=== PATIENT | female | born 1970 | race Caucasian/White ===

== ENCOUNTER 2018-07-09 10:55 | Day surgery (SDC) | payer BC ==
[2018-07-08 14:46] VITALS: BMI 28.3
[2018-07-09] MEDS ORDERED: Thrombin 5000 UNITS/5 ML VIAL ONE (11:44)
[2018-07-09] MEDS ORDERED: Bacitracin Zinc Ointment 30 gm TUBE ONE (11:44)
[2018-07-09] MEDS ORDERED: Sodium Chloride 0.9% 10 ML ONE (11:44)
[2018-07-09 11:48] LABS: #Basophils 0.1 thou/uL (0.0-0.2); #Eosinphils 0.3 thou/uL (0.0-0.7); #Lymphocytes 2.4 thou/uL (1.20-3.40); #Monocytes 0.5 thou/uL (0.11-0.59); #Neutrophils 4.1 thou/uL (1.40-6.50); %Basophils 0.9 % (0.0-1.0); %Lymphocytes 32.4 % (21.0-51.0); %Monocytes 6.5 % (0.0-10.0); %Neutrophils 56.2 % (42.0-75.0); Hemoglobin 13.9 g/dL (12.0-16.0); Mean Corpuscular HGB CONC 35.1 g/dL (32.0-36.0); Mean Corpuscular Hemoglobin 34.6 pg (27.0-31.0); Mean Corpuscular Volume 98.5 fL (78.0-98.0); Mean Platelet Volume 7.1 fL (7.4-10.4); Platelet Count 273 thou/uL (130-400); RBC Distribution Width 10.8 % (11.5-14.5); Red Blood Cell (RBC) Count 4.03 mill/uL (4.20-5.40); White Blood Cell (WBC) Count 7.3 thou/uL (4.8-10.8)
[2018-07-09] MEDS ORDERED: Fentanyl 250 MCG/5 ML VIAL ONE (11:53)
[2018-07-09 11:58] LABS: Anion Gap 12 mmol/L (10-20); BUN (Urea Nitrogen) 10 mg/dL (7.0-18.7); Calc. Creatinine Clearance 94 mL/min (70-130); Calcium 9.2 mg/dL (7.8-10.44); Carbon Dioxide 24 mmol/L (22-29); Estimated GFR-MDRD 85; Glucose 95 mg/dL (70-105); Potassium 4.1 mmol/L (3.5-5.1)
[2018-07-09 12:04] LABS: INR-International Normal Ratio 0.9; PTT 25.6 SEC (22.9-36.1); Prothrombin Time 12.5 SEC (12.0-14.7)
[2018-07-09 12:07] LABS: Chloride 103 mmol/L (98-107); Sodium 135 mmol/L (136-145)
[2018-07-09] MEDS ORDERED: CEFAZOLIN/Water 2 GM/20 ML SYRINGE ONE (12:27)
[2018-07-09] MEDS ORDERED: Milk Of Magnesia 30 ML UDCUP PO PRN (14:42)
[2018-07-09] MEDS ORDERED: Fleet Enema 133 ML BOT PR PRN (14:42)
[2018-07-09] MEDS ORDERED: HYDROcodone/Acetaminophen 7.5/325 mg Tablet PO PRN (14:42)
[2018-07-09] MEDS ORDERED: traMADol HCl 50 MG TAB PO PRN (14:42)
[2018-07-09] MEDS ORDERED: Mag-Al 1200 mg/1200 mg/30 ML UDCUP PO PRN (14:42)
[2018-07-09] MEDS ORDERED: Acetaminophen/Codeine 30-300mg Tablet PO PRN (14:42)
[2018-07-09] MEDS ORDERED: Acetaminophen 325 MG TAB PO PRN (14:42)
[2018-07-09] MEDS ORDERED: Bisacodyl 10 MG SUPP PR PRN (14:42)
[2018-07-09] MEDS ORDERED: tiZANidine HCl 4 MG TAB PO PRN (14:42)
[2018-07-09] MEDS ORDERED: PROVENTIL INHALER 6.7 G (200 INHALATIONS) INH PRN (14:47)
[2018-07-09] MEDS ORDERED: Promethazine HCl 25 MG/ML VIAL SLOW IVP PRN ×2 (14:55→16:13)
[2018-07-09] MEDS ORDERED: Fentanyl 100 MCG/2 ML VIAL ONE ×2 (14:55→15:15)
[2018-07-09] MEDS ORDERED: Promethazine HCl 25 MG/ML VIAL IM PRN ×2 (14:55→16:13)
[2018-07-09] MEDS ORDERED: Ondansetron HCl/PF 4 MG/2 ML Vial IVP PRN ×2 (14:55→16:13)
[2018-07-09] MEDS ORDERED: HYDROmorphone 2 MG/ML VIAL ONE (15:38)
[2018-07-09] MEDS ORDERED: HYDROmorphone 2 MG/ML VIAL SLOW IVP PRN (16:13)
[2018-07-09] MEDS: Gabapentin 400 MG CAP PO SCH ×2 (16:39→20:49)
[2018-07-09] MEDS: Sodium Chloride 0.9% 1,000 ML IV SCH (16:39)
--- NOTE | 2018-07-09 17:29 | OP ---
PREPROCEDURE DIAGNOSES: Low back and left leg pain with left L4-L5 or L5-S1 disk extrusion with left L5 and left S1 radiculopathy. POSTPROCEDURE DIAGNOSES: Low back and left leg pain with left L4-L5 or L5-S1 disk extrusion with lef t L5 and left S1 radiculopathy. PROCEDURE: 1. Left L4-L5 and left L5-S1 hemilaminotomies, foraminotomies and diskectomy. 2. Use of operative microscope for microdissection. DESCRIPTION OF PROCEDURE: After informed consent was obtained from the patient, the patient brought to OR 12. Proper patient pause and identification was carried out. She was placed in excellent endo tracheal anesthesia and positioned prone on the OR table. All appropriate points were padded. We id entified the L4-L5, L5-S1 dorsal spines and lamina linear waldemar was made over this region. This area sterilely cleansed, prepared, and draped. Proper patient pause and the identification was carried ou t. The wound was then opened with a combination of sharp, monopolar and blunt dissection proceeded o praveen the L4-L5, left L5-S1 hemilamina region L4-L5, left L5-S1 hemilaminotomies were performed along w ith foraminotomies. We then brought the microscope in for microdissection working in the axilla of t he exiting left L5 nerve root. Multiple disk fragments were removed that were soft and large. We breen d excellent decompression of the left L5 nerve root and the left S1 nerve root. I explored the left L5-S1 disk space and some soft fragments were able to be removed, but the majority of it was simply o utside of the disk space posterior to the left L5 body. I also explored up to the left L4-L5 segment to see if there was any disk material emanating from it and there was not. Copious irrigation occur red throughout. We maximized hemostasis. The wound was then closed in anatomic layers following the sprinkling of vancomycin powder. There was no spinal fluid leak. The patient emerged from anesthes ia.
[2018-07-09] MEDS: Promethazine HCl 25 MG/ML VIAL IM PRN ×2 (18:02→22:07)
[2018-07-09] MEDS: Mometasone/Formoterol 120 PUFF INHALER INH SCH (18:26)
[2018-07-09] MEDS: CEFAZOLIN/Water 2 GM/20 ML SYRINGE SLOW IVP SCH (20:48)
[2018-07-10] MEDS: CEFAZOLIN/Water 2 GM/20 ML SYRINGE SLOW IVP SCH (05:30)
[2018-07-10] MEDS: Sodium Chloride 0.9% 1,000 ML IV SCH (05:30)
[2018-07-10] MEDS ORDERED: Levothyroxine Sodium 112 MCG TAB PO SCH (06:00)
[2018-07-10] MEDS ORDERED: Levothyroxine Sodium 25 MCG TAB PO SCH (06:00)
[2018-07-10] MEDS: Mometasone/Formoterol 120 PUFF INHALER INH SCH (06:23)
[2018-07-10] MEDS: Gabapentin 400 MG CAP PO SCH (08:00)
[2018-07-10 08:35] VITALS: BP 90/55; TEMP 98.5
[2018-07-10] MEDS ORDERED: Citalopram 20 MG TAB PO SCH (09:00)
[2018-07-10] MEDS ORDERED: Non-Formulary Item 1 EACH (Levothyroxine Sodium [Levothyroxine Sodium] 1 TAB) PO SCH (09:00)
--- NOTE | 2018-07-10 18:06 | DIS ---
DATE OF ADMISSION: 07/09/2018 DATE OF DISCHARGE: 07/10/2018 DISCHARGE DIAGNOSIS: Include low back pain with lumbar radiculopathy. HOSPITAL COURSE: Ms. De Jesus was admitted on 07/09/2018 to undergo a left hemilaminotomy and diskectomy at L4-L5 and L5-S1. The patient tolerated the procedure well, recovered for 1 overnight stay in the surgical unit. At the time of discharge, she was very pleased with her pain control. Appropriate p atient education and outpatient followup appointments were provided. She had good strength in bilate ral lower extremities and was walking well. She was pleased with her outcome postoperatively and und erstood to call the office with questions or concerns prior to her next followup appointment.
== END 2018-07-10 11:51 | disposition home or self-care (01) ==
LOC: SDC 10:55 → SJJU 14:42 → UNDOADMOB 14:42 → UNDODISOB 07-10 11:51 → SDC 07-10 11:51
PROVIDERS: ATTEND Surgery
PROC: 01NB0ZZ Release Lumbar Nerve, Open Approach (ICD-10-PCS; principal; 2018-07-09)
PROC: 0SB20ZZ Excision of Lumbar Vertebral Disc, Open Approach (ICD-10-PCS; principal; 2018-07-09)
DX: M51.17 Intervertebral disc disorders with radiculopathy, lumbosacral region (principal); Z79.51 Long term (current) use of inhaled steroids; Z79.899 Other long term (current) drug therapy
CPT/HCPCS: 36415; 76001; 80048; 85025; 85610; 85730; 93005; 93010; 96374; 96375; A4216; J1170; J2270; J2550; J3010; J3370; J3490

== ENCOUNTER 2018-08-18 11:48 | Observation (INO) | payer BC, OTHER, SELFPAY ==
[2018-08-18 12:32] LABS: #Eosinphils 0.1 thou/uL (0.0-0.7); #Lymphocytes 1.1 thou/uL (1.20-3.40); #Monocytes 0.8 thou/uL (0.11-0.59); #Neutrophils 12.6 thou/uL (1.40-6.50); %Basophils 0.2 % (0.0-1.0); %Eosinophils 0.7 % (0.0-10.0); %Lymphocytes 7.8 % (21.0-51.0); %Monocytes 5.2 % (0.0-10.0); %Neutrophils 86.2 % (42.0-75.0); Hemoglobin 14.9 g/dL (12.0-16.0); Mean Corpuscular HGB CONC 32.3 g/dL (32.0-36.0); Mean Corpuscular Hemoglobin 31.7 pg (27.0-31.0); Mean Corpuscular Volume 98.2 fL (78.0-98.0); Mean Platelet Volume 7.7 fL (7.4-10.4); Platelet Count 314 thou/uL (130-400); RBC Distribution Width 11.1 % (11.5-14.5); Red Blood Cell (RBC) Count 4.69 mill/uL (4.20-5.40); White Blood Cell (WBC) Count 14.7 thou/uL (4.8-10.8)
[2018-08-18 12:52] LABS: ALT (SGPT) 15 U/L (8-55); AST (SGOT) 15 U/L (5-34); Albumin 4.4 g/dL (3.5-5.0); Alkaline Phosphatase 51 U/L (40-150); Anion Gap 13 mmol/L (10-20); BUN (Urea Nitrogen) 8 mg/dL (7.0-18.7); Bilirubin, Total 0.6 mg/dL (0.2-1.2); CRP (Inflammatory) 5.27 mg/dL (= or < 0.5); Calc. Creatinine Clearance 0 mL/min (70-130); Calcium 9.6 mg/dL (7.8-10.44); Carbon Dioxide 23 mmol/L (22-29); Chloride 101 mmol/L (98-107); Estimated GFR-MDRD 78; Globulin 3.1 g/dL (2.4-3.5); Glucose 114 mg/dL (70-105); Potassium 3.7 mmol/L (3.5-5.1); Protein, Total 7.5 g/dL (6.0-8.3); Sodium 133 mmol/L (136-145)
[2018-08-18] MEDS ORDERED: Acetaminophen 500 MG TAB ONE (13:00)
[2018-08-18 13:35] LABS: Bilirubin Negative (Negative); Blood, Urine Negative (Negative); Clarity CLEAR (Clear); Glucose, Urine (Dipstick) Negative (Negative); Leukocyte Negative (Negative); Nitrite Negative (Negative); Protein, Urine (Dipstick) Negative (Neg-Trace); Urobilinogen 0.2 mg/dL (0.2-1.0)
--- NOTE | 2018-08-18 13:38 | RAD ---
CHEST 1 VIEW PORTABLE: HISTORY: A 48-year-old female with a history of tachycardia. History of prior back surgery on 07/09. FINDINGS: Postop changes are noted at the level of the lower cervical spine. Heart size is within normal limit s. The lungs are clear. No pneumonia, edema, or pleural effusion. IMPRESSION: No acute intrathoracic disease. POS: [facility]
--- NOTE | 2018-08-18 14:22 | ULT ---
ULTRASOUND WITH DOPPLER DUPLEX VENOUS LOWER EXTREMITIES BILATERAL: HISTORY: 48-year-old female with bilateral lower extremity pain. TECHNIQUE: Color flow Doppler, spectral waveform analysis of pulsed Doppler, and sanchez-scale imaging with darion sam and augmentation, were used to evaluate the bilateral common femoral, femoral, popliteal, store stock associate ior tibial, and superficial femoral, veins; and the proximal portions of the profunda femoral and gre ater saphenous, veins. FINDINGS: There is normal compressibility, demonstration of blood flow by color Doppler and pulsed Doppler, and response to augmentation, in all interrogated veins. IMPRESSION: Negative. No deep vein thrombosis in the bilateral lower extremities. pancho POS: [facility]
[2018-08-18] MEDS ORDERED: Levofloxacin 500 mg/D5W 100 ml Premix Bag ONE (14:41)
[2018-08-18 15:57] VITALS: BMI 27.8
[2018-08-18] MEDS ORDERED: Ondansetron HCl/PF 4 MG/2 ML Vial IVP PRN (15:57)
[2018-08-18] MEDS ORDERED: Ondansetron ODT 4 MG TAB SL PRN (15:57)
[2018-08-18] MEDS: Sodium Chloride 0.9% 1,000 ML IV SCH (16:58)
[2018-08-18] MEDS ORDERED: Acetaminophen 325 MG TAB PO PRN (18:18)
[2018-08-18] MEDS ORDERED: traMADol HCl 50 MG TAB PO PRN (18:19)
[2018-08-18] MEDS ORDERED: PROVENTIL INHALER 6.7 G (200 INHALATIONS) INH PRN (18:19)
[2018-08-18] MEDS ORDERED: tiZANidine HCl 4 MG TAB PO PRN (18:19)
[2018-08-18] MEDS: Vancomycin HCl 1 GM in Premix Bag 1 BAG IVPB SCH (20:14)
[2018-08-18] MEDS: Cefepime 2 GM in Sodium Chloride 0.9% 100 ML IVPB SCH (20:17)
[2018-08-18] MEDS: Gabapentin 400 MG CAP PO SCH (20:18)
[2018-08-18] MEDS ORDERED: Non-Formulary Item 1 EACH (Fluticasone/Salmeterol [Advair Diskus 500/50] 1 INH) INH SCH (21:00)
[2018-08-18] MEDS: metroNIDAZOLE 500 MG in Premix Bag 1 BAG IVPB SCH (21:04)
--- NOTE | 2018-08-19 00:24 | HP ---
NEUROSURGICAL NOTE HISTORY OF PRESENT ILLNESS: Ms. Martinez was told to come into the emergency room this morning by Freeman Pierre PA-C due to some drainage from her surgical site. Patient had left knee laminectomy L3-L4 o n 07/09/[address] Ricardo. She states that she was healing really well, progressing nicely until ap proximately 3 days ago when she thinks she might have open the incision while holding her grandson. She states that about 3 days ago, she started to notice a little bit of clear yellow drainage from th e incision site. Last night, she developed some nausea, went to the emergency department in [place] where a CT L-spine was performed did not show any fluid collection around her surgical site. They st ated that her white blood cell count was elevated and prescribed antibiotics and sent her home. Ursula ent states that her pain was worse this morning and when she talked with BARRINGTON Millard it was decided that she needed to be seen in the ED again for a further workup. Patient states that most of her alex n is around her incision and along the belt line of her lumbar area. She states that the pain when r esting is 4, if she tries to move it goes up to about a 6/10. Patient has started to have a fever, c hills. Patient denies any new radicular symptoms down in either leg. She denies any numbness or tin gling. No difficulty with urination or bowel movement. REVIEW OF SYSTEMS: Patient reports chills. Denies fever that she is aware of. No changes in vision or hearing. No sore throat. No difficulty swallowing. Denies any chest pain or palpitations. Den ies shortness of breath or cough. She denies any abdominal pain. She reports nausea, no vomiting. The patient denies any changes in urination or bowel movements. She reports back pain. Denies any h eadache, numbness, or tingling. MEDICATIONS: Levothyroxine, citalopram, atorvastatin, promethazine, gabapentin. PAST MEDICAL HISTORY: Hypothyroidism, rheumatoid arthritis, and asthma. PAST SURGICAL HISTORY: Laminectomy in June, previous cervical surgery. SOCIAL HISTORY: Patient denies alcohol use, smoking, or any other illicit drugs. PHYSICAL EXAMINATION: VITAL SIGNS: Blood pressure 119/83, heart rate 112, respiratory rate 18, temperature 100.2, O2 sats 92% on room air. GENERAL: Patient is resting in the hospital bed. She is tachycardic. She appears to be nondistress ed, but slightly uncomfortable. CONSTITUTIONAL: Patient is alert and oriented to person, place, and time. Respirations are normal a nd she is nontoxic. HEENT: Head is normocephalic, atraumatic. Eyes: Pupils are equal, round, reactive to light. Extra ocular movements intact. Moist mucous membranes. Hearing is intact. RESPIRATORY: Normal work of breathing in room air. CARDIOVASCULAR: Regular rhythm, tachycardic, normal S1, S2. EXTREMITIES: Motor exam, patient is moving upper and lower extremities well. She has 5/5 strength a nd deltoids, biceps, triceps, wrist extension 5/5 bilaterally. Strength in hip flexion, knee flexion , knee extension, dorsiflexion, 4/5 strength in the left EHL. NEUROLOGIC: Patient is alert and oriented to person, place, and time. She has no focal sensory defi cits. She has weakness in the left EHL, which was there prior to the surgery. Cranial nerves II thr ough XII are intact. She has no new neurological deficits since her surgery. SKIN: Incision posterior lumbar incision, which is approximately 3 inches in length. There are what appears to be four subcuticular sutures that are servicing one have opened. There is 0.5 cm area op ened that is draining a small amount of clear yellow tinged fluid. Erythema surrounding the incision . Patient is nontender when palpating the incision. There is not any significant edema surrounding the incision. IMAGING: A lumbar CT was performed when she was at the [place] ED. CLINICAL IMPRESSION: 1. Postoperative changes involving the lower lumbar spine with minimal standing within the dorsal parks bcutaneous tissue. No drainable fluid collection identified. 2. No acute findings involving the lumbar spine, postsurgical changes. ASSESSMENT AND PLAN: We would like to bring Ms. De Jesus into the hospital overnight for observation. W e will start antibiotics for the open lumbar incision. Levaquin 500 mg once a day. We will monitor for any worsening fevers or chills. We will keep her pain under control and reevaluate in the [facility]
[2018-08-19] MEDS: Sodium Chloride 0.9% 1,000 ML IV SCH ×2 (03:40→17:27)
[2018-08-19] MEDS: metroNIDAZOLE 500 MG in Premix Bag 1 BAG IVPB SCH ×3 (05:08→22:57)
[2018-08-19] MEDS: Levothyroxine Sodium 112 MCG TAB PO SCH (05:08)
[2018-08-19] MEDS: Levothyroxine Sodium 25 MCG TAB PO SCH (05:08)
[2018-08-19] MEDS: Mometasone/Formoterol 120 PUFF INHALER INH SCH ×2 (06:36→18:52)
[2018-08-19] MEDS: Vancomycin HCl 1 GM in Premix Bag 1 BAG IVPB SCH ×2 (08:38→20:36)
[2018-08-19] MEDS: Citalopram 20 MG TAB PO SCH (08:39)
[2018-08-19] MEDS: Gabapentin 400 MG CAP PO SCH ×3 (08:39→20:39)
[2018-08-19] MEDS ORDERED: Non-Formulary Item 1 EACH (Levothyroxine Sodium [Levothyroxine Sodium] 1 TAB) PO SCH (09:00)
--- NOTE | 2018-08-19 10:36 | PRG ---
DATE OF SERVICE: 08/19/2018 Ms. De Jesus was readmitted almost 6 weeks after lumbar diskectomy. She as of late had fever and chills. She was admitted, her white blood cell count is elevated as is her CRP and ESR. CT scan was done a [facility] in [place] with no clear abscess formation, although the patient was started to hav e yellow wound drainage. This does appear somewhat as purulence, but a seroma fluid nevertheless. I am quite concerned regarding the fact that it is a wound infection. She does have a history of rheu matoid arthritis and is on Dmards and continues to be on one now. I do not think that is playing a s ignificant role in her wound infection risk. Blood and urine cultures are negative at this point. S he neurologically is intact and appears to be nontoxic. I should note that the blood cultures were o btained with her off of any antibiotics. However, given the concern of systemic infection I did not initiate broad spectrum antibiotics after blood cultures were drawn. We will plan to take her to [facility] today for wound reopening, culture and washout. Infectious Disease has been consulted. She has no chest x-ray. Ultrasound of the legs is also negative at this point. Informed consent was discus sed with the patient and her . They wish we would proceed.
[2018-08-19] MEDS: Cefepime 2 GM in Sodium Chloride 0.9% 100 ML IVPB SCH ×2 (11:29→22:19)
[2018-08-19] MEDS ORDERED: Metoclopramide HCl 10 MG/2 ML VIAL ONE (12:58)
[2018-08-19] MEDS ORDERED: Scopolamine 1.5 mg/72 hour Patch ONE (12:58)
[2018-08-19] MEDS ORDERED: Famotidine/PF 20 mg/2ml Vial ONE (12:58)
[2018-08-19] MEDS ORDERED: Ondansetron HCl/PF 4 MG/2 ML Vial ONE (13:10)
[2018-08-19] MEDS ORDERED: Bacitracin Zinc Ointment 30 gm TUBE ONE (13:33)
[2018-08-19] MEDS ORDERED: Sodium Chloride 0.9% 10 ML ONE (13:34)
[2018-08-19] MEDS ORDERED: Fentanyl 100 MCG/2 ML VIAL ONE ×2 (13:45→16:08)
[2018-08-19] MEDS ORDERED: HYDROmorphone 2 MG/ML VIAL SLOW IVP PRN (14:45)
[2018-08-19] MEDS ORDERED: PACU-Morphine 4MG/ML VIAL SLOW IVP PRN (14:45)
[2018-08-19] MEDS ORDERED: Promethazine HCl 25 MG/ML VIAL IM PRN (14:45)
[2018-08-19] MEDS ORDERED: Ondansetron HCl/PF 4 MG/2 ML Vial IVP PRN (14:45)
[2018-08-19] MEDS ORDERED: Meperidine HCl/PF 25 MG/ML VIAL SLOW IVP PRN (14:45)
[2018-08-19] MEDS ORDERED: Morphine Sulfate 2 MG/ML SYRINGE SLOW IVP PRN (14:45)
[2018-08-19] MEDS ORDERED: Promethazine HCl 25 MG/ML VIAL SLOW IVP PRN (14:45)
[2018-08-19] MEDS ORDERED: HYDROmorphone 2 MG/ML VIAL ONE (15:05)
--- NOTE | 2018-08-19 15:31 | OP ---
DATE OF PROCEDURE: 08/19/2018 LOCATION: OR 11. PREPROCEDURE DIAGNOSIS: Wound drainage with concern of lumbar wound infection. POSTPROCEDURE DIAGNOSIS: Wound drainage with concern of lumbar wound infection. SURGEON: Rubens Ricardo M.D. CLINICAL STATISTICS MANAGER: Freeman Pierre PA-C. PROCEDURE: Reopening of prior lumbar hemilaminotomy wound with intraoperative culture wash out and r eclosure. DESCRIPTION OF PROCEDURE: After informed consent was obtained from the patient, the patient brought to OR 11. Proper patient pause and identification was carried out. She was placed in excellent gene ral endotracheal anesthesia and positioned prone on the OR table. All appropriate points were padded . We identified the midline lumbar wound, which had healed very well, no evidence of infection exter patric with exception of two small pinholes in the wound. There was a yellow serous drainage through the pin holes given the patient's biochemical data in presentation, I was concerned about wound infec tion. I should note, the patient also has a history of rheumatoid arthritis and is on immunosuppress ion. The wound was sterilely cleansed, prepared, and draped. After proper patient pause and identif ication, lumbar wound was opened. Small fluid collection of yellow seroma appearing content was cult ured and sent. There is no evidence of purulence. I did follow the wound deep down to the thecal sa c and I did not find any evidence of purulence there either. This appeared to be largely superficial if it was in fact infected, which will see how her intraoperative cultures mature. Copious irrigati on occurred with normal saline and bacitracin. Hemostasis was maximized. The wound was then closed again in anatomic layers following the sprinkling of vancomycin powder. The patient then emerged fro anesthesia.
[2018-08-19] MEDS ORDERED: Ketorolac Tromethamine 30 MG/ML VIAL ONE (15:34)
[2018-08-19] MEDS ORDERED: Glycopyrrolate 0.2 MG/ML 5 ML SYRINGE ONE (15:34)
[2018-08-19] MEDS ORDERED: Lidocaine 1% PF 5 ML VIAL ONE (15:34)
[2018-08-19] MEDS ORDERED: PROPOFOL 200 MG/20 ML VIAL ONE (15:34)
[2018-08-20] MEDS: metroNIDAZOLE 500 MG in Premix Bag 1 BAG IVPB SCH ×3 (06:50→22:53)
[2018-08-20] MEDS: Levothyroxine Sodium 25 MCG TAB PO SCH (06:50)
[2018-08-20] MEDS: Sodium Chloride 0.9% 1,000 ML IV SCH ×2 (06:50→20:50)
[2018-08-20] MEDS: Levothyroxine Sodium 112 MCG TAB PO SCH (06:50)
[2018-08-20] MEDS ORDERED: HYDROcodone/Acetaminophen 5/325 mg Tablet ONE (06:59)
[2018-08-20] MEDS: HYDROcodone/Acetaminophen 5/325 mg Tablet PO PRN ×2 (07:00→13:49)
[2018-08-20] MEDS ORDERED: Citalopram 20 MG TAB ONE (08:43)
[2018-08-20] MEDS: Gabapentin 400 MG CAP PO SCH ×3 (09:30→20:47)
[2018-08-20] MEDS: Citalopram 20 MG TAB PO SCH (09:30)
[2018-08-20] MEDS: Vancomycin HCl 1 GM in Premix Bag 1 BAG IVPB SCH ×2 (09:30→20:47)
--- NOTE | 2018-08-20 10:27 | PRG ---
DATE OF SERVICE: 08/20/2018 Ms. De Jesus is now postoperative day #1, having undergone lumbar wound exploration and culturing. It wa s a postoperative seroma collection, but no tanya purulent material noticed during surgery. We will await cultures, but otherwise she remains on antibiotics. We will work on pain control today as the patient does have some incisional back pain. She has good strength in the bilateral lower extremitie s. Her incision is covered with a dressing and the dressing is dry. Again, we will continue to corey tor the patient and will await final culturing and appreciate the Infectious Disease consult. Otherw ise, we will check back on the patient tomorrow as well as her cultures. Please call with any change s in the patient's neurologic status.
[2018-08-20] MEDS ORDERED: Ondansetron HCl/PF 4 MG/2 ML Vial ONE (11:36)
[2018-08-20] MEDS ORDERED: Ondansetron HCl/PF 4 MG/2 ML Vial SLOW IVP PRN (12:21)
[2018-08-20] MEDS: Cefepime 2 GM in Sodium Chloride 0.9% 100 ML IVPB SCH ×2 (13:43→22:05)
--- NOTE | 2018-08-20 14:51 | CON ---
DATE OF CONSULTATION: 08/20/2018 REASON FOR CONSULTATION: Postop laminectomy site infection. HISTORY OF PRESENT ILLNESS: A 48-year-old who has a history of rheumatoid arthritis on Enbrel until a few weeks ago among other medications as well as asthma and hypothyroidism who underwent L4-L5 and L5-S1, a left hemilaminotomy and diskectomy by Dr. Ricardo on 07/09/2018. She did well until 3 days b efore admission when she developed yellow drainage from the incision site and then nausea. Had an ev aluation in [place] [facility] and a CT of the spine showed no evidence of fluid collection. Her white cell count was noted to be elevated and she was given oral antimicrobial therapy and discharged. Her pain worsened and then she was again seen at the emergency room. She felt some pain, which appears to be referred pain around the belt line at the lumbar area. She did have some fever and chills and fernanda gonzalez was admitted on 08/18/2018 and had surgical evaluation of the area by Dr. Ricardo on 08/19/2018. After endotracheal anesthesia, the wound appeared healed. There was small pin holes in the wound a jared with yellow serous drainage from the pin holes. The area was opened and a small fluid collection with the yellow color, cultured and submitted to the laboratory. The wound was opened until the the obinna sac and there is no evidence of purulence there either. Currently, she has some headaches. She grades at 5/10. No visual symptoms, sore throat, odynophagia , dysphagia, no dyspnea or chest pain, no abdominal pain or diarrhea. Voiding without difficulty. H er usual joint symptoms with no change from prior status. PAST MEDICAL HISTORY: Rheumatoid arthritis, hypothyroidism, asthma. PAST SURGICAL HISTORY: Laminotomy at the end of June. She has some sort of cervical surgery. SOCIAL HISTORY: Never a smoker. Lives in [place], , has children. No alcoholic beverage use or other drug use. CURRENT MEDICATIONS: Tylenol, albuterol, cefepime, Celexa, gabapentin, Flagyl, and vancomycin. PHYSICAL EXAMINATION: VITAL SIGNS: T-max 98.4, blood pressure 96/61, pulse 85, respirations 16, O2 sat 93%-97%. SKIN: Shows the stitched up site with serous drainage in a small amount, not much erythema in the parks rrounding skin. No lymphadenopathy. HEENT: Ocular movements conjugate. Orbits appear with normal movements. Sclerae are white. Pupils are equal and reactive. Oral cavity normal. NECK: Supple, no jugular vein distention or carotid bruits. LUNGS: With symmetric clear breath sounds. HEART: S1, S2, regular rate. No S3, S4. ABDOMEN: Soft, not distended or tender. No ascites. No bladder distention. EXTREMITIES: She has some mild to moderate joint deformities from her rheumatoid arthritis, but I di d not find any active inflammatory process going on in any of her joints. Pulses are 2+ in dorsalis pedis. Cap refill normal. Strength in upper and lower extremities preserved. Plantar responses are flexure. No clonus. NEUROLOGIC: Cognitive function appears to be intact. LABORATORY DATA AND IMAGING: White cell count 14.7, hemoglobin 14.9, platelets 314 with 86% neutroph ils. Sodium 133, creatinine 0.79, glucose 114. Transaminases normal. CRP 5.27. Urinalysis was nor mal. Microbiology with some growth and the cultures from the site, possible mixed culture. Chest x- ray with no infiltrates. A venogram of lower extremities with no evidence of DVT. ASSESSMENT: 1. Rheumatoid arthritis, recently on Enbrel. 2. Laminotomy with diskectomy and inflammatory process with fever, leukocytosis, and local pain with serous drainage. DISCUSSION: The patient appears to have clinically superficial infection, and evidently a deeper pen etration is possible, but even then it would be a low inoculum. Depending on the nature of the organ ism, one could envision discharge planning with oral antimicrobial therapy. I would treat her for lo nger than 2 weeks, probably at least 4 weeks because of the immunosuppression to make sure that there is not recrudescence of the process following interruption of antimicrobial therapy. Evidently, if there is a resistant pathogen, then we will have to switch to IV therapy.
[2018-08-20] MEDS: Mometasone/Formoterol 120 PUFF INHALER INH SCH ×2 (16:54→19:22)
[2018-08-20] MEDS ORDERED: Calcium Carbonate 500 MG ChewTAB PO PRN (20:53)
[2018-08-21] MEDS: Sodium Chloride 0.9% 1,000 ML IV SCH ×2 (04:15→08:06)
[2018-08-21] MEDS: Levothyroxine Sodium 25 MCG TAB PO SCH (05:17)
[2018-08-21] MEDS: metroNIDAZOLE 500 MG in Premix Bag 1 BAG IVPB SCH ×2 (05:17→14:08)
[2018-08-21] MEDS: Levothyroxine Sodium 112 MCG TAB PO SCH (05:17)
[2018-08-21] MEDS: Cefepime 2 GM in Sodium Chloride 0.9% 100 ML IVPB SCH (08:05)
[2018-08-21] MEDS: Vancomycin HCl 1 GM in Premix Bag 1 BAG IVPB SCH (08:05)
[2018-08-21] MEDS: Citalopram 20 MG TAB PO SCH (08:06)
[2018-08-21] MEDS: Gabapentin 400 MG CAP PO SCH ×2 (08:06→14:08)
[2018-08-21] MEDS: Mometasone/Formoterol 120 PUFF INHALER INH SCH (08:21)
[2018-08-21 11:34] VITALS: BP 95/64; TEMP 98.2
--- NOTE | 2018-08-21 13:59 | DIS ---
DATE OF ADMISSION: 08/18/2018 DATE OF DISCHARGE: 08/21/2018 DISCHARGE DIAGNOSES: 1. Low back pain. 2. Lumbar wound drainage. HOSPITAL COURSE: Ms. De Jesus was admitted to [facility] for wound drainage roughly 6 weeks pos top from a left-sided hemilaminotomy and diskectomy. The patient was on DMARDs for rheumatoid arthri tis, began to experience some drainage from the incision 3 days prior to admission. She was taken to the OR for lumbar wound exploration and culturing and eventually cultures came back positive for Sta ph aureus and Streptococcus group B strep. She was placed on appropriate antibiotics throughout her hospital course. Infectious Disease help to manage these. At the time of discharge, the patient has good strength in bilateral lower extremities and according to the patient and nurse, she was walking well. She did have some scant drainage on her dressing, but no active drainage from the incision. At the time of discharge, the patient was pleased with her outcome postoperatively with significant i mprovement in low back and bilateral lower extremity symptoms. Outpatient followup appointments were provided as well as appropriate patient education. Ample opportunity was given to the patient to di scuss her questions and concerns and she understood to call the office with questions or concerns bridget or to the next followup appointment.
--- NOTE | 2018-08-21 15:25 | PRG ---
DATE OF SERVICE: 08/21/2018 SUBJECTIVE: Ms. De Jesus is feeling better. The pain is relieved in the lower back area, just a little burning sensation. No respiratory symptoms, no vomiting, no diarrhea. Voiding without difficulty. PHYSICAL EXAMINATION: VITAL SIGNS: Normal. GENERAL: Awake, alert, oriented. LUNGS: Clear. CARDIOVASCULAR: S1, S2, regular rate. LS incision is dry with no tenderness or drainage. NEUROLOGIC: Examination is normal. LABORATORY DATA: No new labs submitted today. Microbiology with methicillin sensitive Staph aureus and Streptococcus group B retrieved. ASSESSMENT AND DISCUSSION: Rheumatoid arthritis, recently on Enbrel, laminotomy with diskectomy and inflammatory process which appears to be superficial with group B strep and methicillin-sensitive Staphylococcus aureus. We will plan for discharge on Keflex and oral Levaquin for 4 weeks. Follow up in the clinic in the next 2 weeks. GIOVANNI
== END 2018-08-21 15:03 | disposition home or self-care (01) ==
LOC: ERS 11:48 → SURG B 14:51
PROVIDERS: ADMIT Surgery; ATTEND Surgery
PROC: 0W9L0ZZ Drainage of Lower Back, Open Approach (ICD-10-PCS; principal; 2018-08-19)
DX: T81.41XA Infection following a procedure, superficial incisional surgical site, initial encounter (principal); B95.61 Methicillin susceptible Staphylococcus aureus infection as the cause of diseases classified elsewhere; B95.1 Streptococcus, group B, as the cause of diseases classified elsewhere; M96.842 Postprocedural seroma of a musculoskeletal structure following a musculoskeletal system procedure; E03.9 Hypothyroidism, unspecified; M06.9 Rheumatoid arthritis, unspecified; J45.909 Unspecified asthma, uncomplicated; Z79.899 Other long term (current) drug therapy; Z98.890 Other specified postprocedural states
CPT/HCPCS: 71045; 76001; 80053; 81003; 85025; 85652; 86140; 87040; 87070; 87077; 87086; 87186; 87205; 90471; 90686; 93970; 96361; 96365; 96366; 96367; 96375; G0008; G0378; J0131; J0692; J1170; J1885; J1956; J2001; J2270; J2405; J2704; J2765; J3010; J3370; J3490; J7050; S0028